=== PATIENT | male | born 1960 | race Caucasian/White ===

== ENCOUNTER 2017-09-02 08:56 | Observation (INO) | payer MEDICAID, OTHER ==
[~2017-09-02] VITALS: Ht 180.3 cm; Wt 88.0 kg
[2017-09-02] VITALS (11 sets, daily range): BP systolic 98–138; BP diastolic 58–89; PULSE 70–99; RESP 16–20; TEMP 97.5–98.9; O2SAT 94–97
--- NOTE | 2017-09-02 09:21 | PD ---
HPI Chief Complaint: Chest Pain Time Seen by Provider: 09:12 Travel History International Travel<30 days: No Contact w/Intl Traveler<30days: No Traveled to known affect area: No History of Present Illness HPI Patient is a 56-year-old male who presents the emergency room with complaints of chest pain. Patient reports that he has history of coronary artery disease, carotid artery stenosis, history of pacemaker, history of a quadruple bypass, presents the emergency room with complaints of chest pain which started last night. Patient reports that he had been having palpitations last night, reports that he woke up this morning with left-sided chest pain. Reports that nothing makes pain better or worse. Denies diaphoresis with his symptoms. Denies shortness of breath with his chest pain. Patient reports that pain because of the sharp stabbing nature that radiates into his left breast. Reports his symptoms are similar to when he had a cardiac stent in the past. Patient was given 2 sublingual nitroglycerin as well as a full dose aspirin, chest pain has improved since then. Patient reports that he currently is taking a baby aspirin, he is supposed to be taking Plavix as he had a carotid enterectomy in May 2017 in [place]. He does follow-up with bag grader in [place], Dr. Grady at [facility]. Patient denies any drugs or alcohol. PFSH Past Medical History Narrative Medical CAD, carotid stenosis, cardiac stents, hypertension, quadruple bypass Chest Pain: Yes Past Surgical History Narrative Surgical Significant for carotid endarterectomy as well as quadruple bypass, cardiac stents Social History Alcohol Use: No Tobacco Use: No Substance Use: No Allergies-Medications (Allergen,Severity, Reaction): Coded Allergies: No Known Allergies (Unverified , 09/02/17) Review of Systems General / Constitutional: No: Fever Eyes: No: Visual changes HENT: No: Headaches Cardiovascular: Positive: Chest Pain or Discomfort, No: Palpitations, Irregular Rhythm, Tachycardia, Diaphoresis Respiratory: No: Shortness of Breath Gastrointestinal: No: Abdominal Pain Genitourinary: No: Dysuria Musculoskeletal: No: Pain Skin: No Rash Neurologic: No: Weakness Psychiatric: No: Depression Endocrine: No: Polydipsia Hematologic/Lymphatic: No: Easy Bruising Physical Exam Narrative GENERAL: Moderate distress SKIN: Focused skin assessment warm/dry. HEAD: Atraumatic. Normocephalic. EYES: Pupils equal and round. No scleral icterus. No injection or drainage. ENT: No nasal bleeding or discharge. Mucous membranes pink and moist. NECK: Trachea midline. No JVD. CARDIOVASCULAR: Regular rate and rhythm. No murmur appreciated. RESPIRATORY: No accessory muscle use. Clear to auscultation. Breath sounds equal bilaterally. GASTROINTESTINAL: Abdomen soft, non-tender, nondistended. Hepatic and splenic margins not palpable. MUSCULOSKELETAL: No obvious deformities. No clubbing. No cyanosis. No edema. NEUROLOGICAL: Awake and alert. No obvious cranial nerve deficits. Motor grossly within normal limits. Normal speech. PSYCHIATRIC: Appropriate mood and affect; insight and judgment normal. Data Data Last Documented VS Vital Signs Date Time Temp Pulse Resp B/P (MAP) Pulse Ox O2 Delivery O2 Flow Rate FiO2 09/02/17 09:13 75 96 Nasal Cannula 2.00 09/02/17 09:13 19 138/89 (105) Orders Orders Electrocardiogram (09/02/17 09:12) Ckmb (Isoenzyme) Profile (09/02/17 09:12) Complete Blood Count With Diff (09/02/17 09:12) Comprehensive Metabolic Panel (09/02/17 09:12) Magnesium (Mg) (09/02/17 09:12) Prothrombin Time / Inr (Pt) (09/02/17 09:12) Act Partial Throm Time (Ptt) (09/02/17 09:12) Troponin I (09/02/17 09:12) Chest, Single Ap (09/02/17 09:12) Ecg Monitoring (09/02/17 09:12) Bilateral Bp Monitoring (09/02/17 09:12) Iv Access Insert/Monitor (09/02/17 09:12) Oximetry (09/02/17 09:12) Drug Screen, Random Urine (09/02/17 09:12) Electrocardiogram (09/02/17 ) Nitroglycerin 2% Oint (Nitroglycerin 2% (09/02/17 11:15) Admit Order (Ed Use Only) (09/02/17 11:01) Labs Laboratory Tests Test 09/02/17 09:15 White Blood Count 8.6 TH/MM3 Red Blood Count 5.44 MIL/MM3 Hemoglobin 16.7 GM/DL Hematocrit 47.8 % Mean Corpuscular Volume 87.9 FL Mean Corpuscular Hemoglobin 30.7 PG Mean Corpuscular Hemoglobin Concent 34.9 % Red Cell Distribution Width 13.7 % Platelet Count 129 TH/MM3 Mean Platelet Volume 8.2 FL Neutrophils (%) (Auto) 73.2 % Lymphocytes (%) (Auto) 12.6 % Monocytes (%) (Auto) 11.5 % Eosinophils (%) (Auto) 2.3 % Basophils (%) (Auto) 0.4 % Neutrophils # (Auto) 6.3 TH/MM3 Lymphocytes # (Auto) 1.1 TH/MM3 Monocytes # (Auto) 1.0 TH/MM3 Eosinophils # (Auto) 0.2 TH/MM3 Basophils # (Auto) 0.0 TH/MM3 CBC Comment DIFF FINAL Differential Comment Prothrombin Time 10.8 SEC Prothromb Time International Ratio 1.1 RATIO Activated Partial Thromboplast Time 27.2 SEC Blood Urea Nitrogen 12 MG/DL Creatinine 0.92 MG/DL Random Glucose 102 MG/DL Total Protein 7.5 GM/DL Albumin 3.6 GM/DL Calcium Level 9.6 MG/DL Magnesium Level 2.0 MG/DL Alkaline Phosphatase 82 U/L Aspartate Amino Transf (AST/SGOT) 43 U/L Alanine Aminotransferase (ALT/SGPT) 30 U/L Total Bilirubin 0.8 MG/DL Sodium Level 140 MEQ/L Potassium Level 4.3 MEQ/L Chloride Level 106 MEQ/L Carbon Dioxide Level 23.2 MEQ/L Anion Gap 11 MEQ/L Estimat Glomerular Filtration Rate 86 ML/MIN Total Creatine Kinase 100 U/L Troponin I LESS THAN 0.02 NG/ML MDM Medical Decision Making Medical Screen Exam Complete: Yes Emergency Medical Condition: Yes Medical Record Reviewed: Yes Interpretation(s) Vital Signs Date Time Temp Pulse Resp B/P (MAP) Pulse Ox O2 Delivery O2 Flow Rate FiO2 09/02/17 09:00 76 19 138/89 (105) 95 EKG at 0908: Atrial paced at 70 bpm, QT/QTc 382/403 Differential Diagnosis ACS, arrhythmia, PE, pneumothorax, electrolyte abnormality Narrative Course 56-year-old male with history of coronary artery disease, presents to the emergency room with complaints of left-sided chest pain. During the course of the patients emergency department visit, the patients history, examination, and differential diagnosis were reviewed with the patient. The patient was placed on a satellite project site monitor with oximetry and frequent blood pressure monitoring. The patient had an IV access obtained and blood work sent for analysis. The patient was initially provided 2 sublingual nitroglycerin as well as aspirin by EMS The patients laboratory studies were reviewed and remarkable for Laboratory Tests Test 09/02/17 09:15 White Blood Count 8.6 TH/MM3 (4.0-11.0) Red Blood Count 5.44 MIL/MM3 (4.50-5.90) Hemoglobin 16.7 GM/DL (13.0-17.0) Hematocrit 47.8 % (39.0-51.0) Mean Corpuscular Volume 87.9 FL (80.0-100.0) Mean Corpuscular Hemoglobin 30.7 PG (27.0-34.0) Mean Corpuscular Hemoglobin Concent 34.9 % (32.0-36.0) Red Cell Distribution Width 13.7 % (11.6-17.2) Platelet Count 129 TH/MM3 (150-450) Mean Platelet Volume 8.2 FL (7.0-11.0) Neutrophils (%) (Auto) 73.2 % (16.0-70.0) Lymphocytes (%) (Auto) 12.6 % (9.0-44.0) Monocytes (%) (Auto) 11.5 % (0.0-8.0) Eosinophils (%) (Auto) 2.3 % (0.0-4.0) Basophils (%) (Auto) 0.4 % (0.0-2.0) Neutrophils # (Auto) 6.3 TH/MM3 (1.8-7.7) Lymphocytes # (Auto) 1.1 TH/MM3 (1.0-4.8) Monocytes # (Auto) 1.0 TH/MM3 (0-0.9) Eosinophils # (Auto) 0.2 TH/MM3 (0-0.4) Basophils # (Auto) 0.0 TH/MM3 (0-0.2) CBC Comment DIFF FINAL Differential Comment Prothrombin Time 10.8 SEC (9.8-11.6) Prothromb Time International Ratio 1.1 RATIO Activated Partial Thromboplast Time 27.2 SEC (24.3-30.1) Blood Urea Nitrogen 12 MG/DL (7-18) Creatinine 0.92 MG/DL (0.60-1.30) Random Glucose 102 MG/DL (74-106) Total Protein 7.5 GM/DL (6.4-8.2) Albumin 3.6 GM/DL (3.4-5.0) Calcium Level 9.6 MG/DL (8.5-10.1) Magnesium Level 2.0 MG/DL (1.5-2.5) Alkaline Phosphatase 82 U/L (45-117) Aspartate Amino Transf (AST/SGOT) 43 U/L (15-37) Alanine Aminotransferase (ALT/SGPT) 30 U/L (12-78) Total Bilirubin 0.8 MG/DL (0.2-1.0) Sodium Level 140 MEQ/L (136-145) Potassium Level 4.3 MEQ/L (3.5-5.1) Chloride Level 106 MEQ/L (98-107) Carbon Dioxide Level 23.2 MEQ/L (21.0-32.0) Anion Gap 11 MEQ/L (5-15) Estimat Glomerular Filtration Rate 86 ML/MIN (>89) Total Creatine Kinase 100 U/L (39-308) Troponin I LESS THAN 0.02 NG/ML Radiology studies were reviewed and remarkable for Last Impressions Chest X-Ray 09/02/17 0912 Signed Impressions: Service Date/Time: Saturday, September 02, 2017 09:20 - CONCLUSION: 1. Post surgical features with minimal left midlung atelectasis/scarring. Ruben Andres MD All labs and all studies reviewed, plan to obs in chest pain center Diagnosis Primary Impression: Chest pain Qualified Codes: R07.9 - Chest pain, unspecified Admitting Information Admitting Physician Requests: Observation Kaity Wang DO September 02, 2017 09:21
--- NOTE | 2017-09-02 09:36 | RADRPT ---
EXAM DATE/TIME: 09/02/2017 09:20 [place] COMPARISON: No previous studies available for comparison. INDICATIONS : Chest pain. MEDICAL HISTORY : Cardiovascular disease. SURGICAL HISTORY : CABG. ENCOUNTER: Initial ACUITY: 1 day PAIN SCORE: 5/10 LOCATION: Bilateral chest FINDINGS: Post surgical changes of prior median sternotomy. Minimal linear parenchymal opacity in the left midl christina zone. Cardiomediastinal contours are within normal limits. Bony thorax is intact. CONCLUSION: 1. Post surgical features with minimal left midlung atelectasis/scarring. Ruben Andres MD on September 02, 2017 at 9:33 Board Certified Radiologist. This report was verified electronically.
[2017-09-02 09:40] LABS: AUTOMATED NEUTROPHIL # 6.3 TH/MM3 (1.8-7.7); BASOPHIL % 0.4 % (0.0-2.0); EOSINOPHIL # 0.2 TH/MM3 (0-0.4); EOSINOPHIL % 2.3 % (0.0-4.0); HEMATOCRIT 47.8 % (39.0-51.0); HEMOGLOBIN 16.7 GM/DL (13.0-17.0); LYMPH % 12.6 % (9.0-44.0); LYMPHOCYTE # 1.1 TH/MM3 (1.0-4.8); MEAN CELL VOLUME 87.9 FL (80.0-100.0); MEAN CORPUSCULAR HEMOGLOBIN 30.7 PG (27.0-34.0); MEAN CORPUSCULAR HGB CONC 34.9 % (32.0-36.0); MEAN PLATELET VOLUME 8.2 FL (7.0-11.0); MONO % 11.5 % (0.0-8.0); NEUT % 73.2 % (16.0-70.0); PLATELET COUNT 129 TH/MM3 (150-450); RED BLOOD COUNT 5.44 MIL/MM3 (4.50-5.90); RED CELL DISTRIBUTION WIDTH 13.7 % (11.6-17.2); WHITE BLOOD COUNT 8.6 TH/MM3 (4.0-11.0)
[2017-09-02 09:48] LABS: INTERNATIONAL NORMALIZED RATIO 1.1 RATIO; PROTHROMBIN TIME - PATIENT 10.8 SEC (9.8-11.6)
[2017-09-02 09:59] LABS: ALT (GPT) 30 U/L (12-78)
[2017-09-02 10:16] LABS: ALBUMIN 3.6 GM/DL (3.4-5.0); ALKALINE PHOSPHATASE 82 U/L (45-117); AST (GOT) 43 U/L (15-37); BICARBONATE 23.2 MEQ/L (21.0-32.0); BLOOD UREA NITROGEN 12 MG/DL (7-18); CALCIUM 9.6 MG/DL (8.5-10.1); CHLORIDE 106 MEQ/L (98-107); CREATININE 0.92 MG/DL (0.60-1.30); GLOMERULAR FILTRATION RATE 86 ML/MIN (>89); GLUCOSE,RANDOM 102 MG/DL (74-106); SODIUM (NA) 140 MEQ/L (136-145); TOTAL BILIRUBIN ADULT 0.8 MG/DL (0.2-1.0); TROPONIN I LESS THAN 0.02 NG/ML (0.02-0.05)
[2017-09-02 10:17] LABS: TOTAL PROTEIN 7.5 GM/DL (6.4-8.2)
[2017-09-02] MEDS ORDERED: NITROGLYCERIN 2% OINT 1 GM PACKET TOP ONE (11:15)
[2017-09-02] MEDS ORDERED: SODIUM CHLORIDE 0.9% FLUSH 10 ML FLUSH IV FLUSH PRN (11:15)
[2017-09-02] MEDS ORDERED: NITROGLYCERIN 0.4 MG SL 25 TABS/BTL SL PRN (11:15)
[2017-09-02] MEDS ORDERED: ACETAMINOPHEN 500 MG CPLT PO PRN (11:15)
[2017-09-02] MEDS ORDERED: ONDANSETRON HCL 4 MG/2 ML VIAL IV PUSH PRN (11:15)
[2017-09-02 13:11] LABS: TROPONIN I LESS THAN 0.02 NG/ML (0.02-0.05)
--- NOTE | 2017-09-02 13:16 | HHI.HP ---
HPI Primary Care Physician None Chief Complaint Chest pain History of Present Illness 56-year-old male with history of coronary artery disease, CABG 4, carotid stenosis, and pacemaker presents emergency room for further evaluation of chest pain. Onset between 7-730 am. Location left anterior chest. Characterized as sharpness. Severity 6/10, currently 4/10. Radiation to left shoulder blade and left axillary area. Duration has been constant. Associated symptoms intermittent dyspnea nausea. Denies vomiting or diaphoresis. Does not hurt to take a deep breath and no particular movement makes pain better or worse. No known precipitating or relieving factors. Endorses never following up with a primary provider or business planner after bypass surgery. Reports "I am grossly negligent with my medications." Review of Systems General: No fatigue,weakness, fever, chills, recent illness, or change in appetite. Has been in his general state of health. HEENT: No RIOS, no vision changes, no nasal congestion or drainage, no dysphasia CV: Continues to have chest pain as stated above. No palpitations, intermittent leg pain, or dizziness. History of x1 cardiac stent (2011) and CABG x4 (2016). RESP: No SOB, cough, or wheeze. Former smoker. GI: No nausea or vomiting, bowel changes, diarrhea, constipation, pain, distention, melena, blood in the stool. No change in appetite, no unintentional weight gain or weight loss : No dysuria, urgency, frequency EXT: Occasional bilateral dependent lower leg edema easily resolved with elevation of legs. No paralgesias MS: No discomfort, injury, or change in ROM NEURO: No difficulty with balance, LOC, or motor/sensory deficits PSYCH: No depression or suicidal ideation. History of "psychic events after receiving anesthesia" and anxiety. Current situational stress. SKIN: No rashes, no concerning lesions Past Family Social History Allergies: Coded Allergies: No Known Allergies (Unverified , 09/02/17) Past Medical History Coronary artery disease, carotid stenosis, hypertension Past Surgical History CABGx4 (August 2016-[place], [place]), Right CEA (May 2017-[place], [place]) Reported Medications None Remembers being prescribed the following (has not taken is "sometime") Metoprolol, furosemide, K-clon, Plavix, Xanax, aspirin, and a statin. Active Ordered Medications Current Medications Medications (Trade) Dose Ordered Sig/Mile Route Start Time Stop Time Status Last Admin (NS Flush) 2 ml UNSCH PRN IV FLUSH 09/02/17 11:15 (NS Flush) 2 ml BID IV FLUSH 09/02/17 21:00 (Tylenol) 500 mg Q4H PRN PO 09/02/17 11:15 (Zofran Inj) 4 mg Q6H PRN IV PUSH 09/02/17 11:15 (Nitrostat Sl) 0.4 mg Q5M PRN SL 09/02/17 11:15 (Aspirin) 325 mg DAILY PO 09/03/17 09:00 Family History Both parents experienced myocardial infarctions in their 50s. Mother required CABG age 61. One brother with no known health issues. Social History Known coronary artery disease and hypertension. No known hyperlipidemia or diabetes. Currently not taking a statin with history of CAD. Former smoker. Quit August 2016. 38 pack year/history. Remote cocaine abuse. Denies any current illegal drug use. Denies any alcohol use. Homeless. Endorses sedentary lifestyle since CEA surgery May 2017. Past cardiac testing Does not have a business planner. Never followed with a business planner after CABG. No cardiac testing completed since CABG. Reports Right carotid artery 60% stenosis prior to CABG. Apparently sometime later having difficulty with balance therefore further ultrasounds completed suggesting right carotid arteries 90% stenotic. Right carotid endarterectomy completed May 2017. No known stenosis percentage of left coronary artery. Physical Exam Vital Signs Vital Signs Date Time Temp Pulse Resp B/P (MAP) Pulse Ox O2 Delivery O2 Flow Rate FiO2 09/02/17 13:00 76 09/02/17 12:10 97.5 70 20 118/70 (86) 96 09/02/17 11:50 09/02/17 11:31 80 19 121/83 (96) 97 Nasal Cannula 2.00 09/02/17 09:13 75 96 Nasal Cannula 2.00 09/02/17 09:13 87 19 138/89 (105) 97 Nasal Cannula 2.00 09/02/17 09:00 76 19 138/89 (105) 95 Physical Exam GENERAL: Alert WN, WD, NAD, pleasant, male who appears older than stated age. HEAD: NC, AT CV: RRR, without murmur, rub, gallop, no JVD, S1-S2 no S3-S4. Faint left carotid bruit, no right carotid bruit. No femoral bruits. Chest wall nontender with palpation. RESP: Clear lungs throughout bilateral, no crackles, wheeze, rhonchi, symmetrical chest rise, nonlabored, able to speak in full sentences ABD: Soft, NT, ND, no masses, positive bowel tones EXT: Pulses +2x4, no dependent edema MS: Normal tone x4 extremities, nontender, no obvious deformities, full range of motion NEURO: CN II through CN XII grossly intact, motor strength 5/5 PSYCH: A+O x3, flat affect, appropriate speech, mood, insight and judgment. Provides detailed history of medical history. SKIN: Normal turgor, normal texture, solar damage, midline chest surgical scar, right carotid surgical scar, and left anterior chest scar all well healed Laboratory Laboratory Tests Test 09/02/17 09:15 09/02/17 12:15 White Blood Count 8.6 Red Blood Count 5.44 Hemoglobin 16.7 Hematocrit 47.8 Mean Corpuscular Volume 87.9 Mean Corpuscular Hemoglobin 30.7 Mean Corpuscular Hemoglobin Concent 34.9 Red Cell Distribution Width 13.7 Platelet Count 129 Mean Platelet Volume 8.2 Neutrophils (%) (Auto) 73.2 Lymphocytes (%) (Auto) 12.6 Monocytes (%) (Auto) 11.5 Eosinophils (%) (Auto) 2.3 Basophils (%) (Auto) 0.4 Neutrophils # (Auto) 6.3 Lymphocytes # (Auto) 1.1 Monocytes # (Auto) 1.0 Eosinophils # (Auto) 0.2 Basophils # (Auto) 0.0 CBC Comment DIFF FINAL Differential Comment Prothrombin Time 10.8 Prothromb Time International Ratio 1.1 Activated Partial Thromboplast Time 27.2 Blood Urea Nitrogen 12 Creatinine 0.92 Random Glucose 102 Total Protein 7.5 Albumin 3.6 Calcium Level 9.6 Magnesium Level 2.0 Alkaline Phosphatase 82 Aspartate Amino Transf (AST/SGOT) 43 Alanine Aminotransferase (ALT/SGPT) 30 Total Bilirubin 0.8 Sodium Level 140 Potassium Level 4.3 Chloride Level 106 Carbon Dioxide Level 23.2 Anion Gap 11 Estimat Glomerular Filtration Rate 86 Total Creatine Kinase 100 77 Troponin I LESS THAN 0.02 LESS THAN 0.02 Result Diagram: 09/02/1715 09/02/1715 Imaging Last 48 hours Impressions Chest X-Ray 09/02/1712 Signed Impressions: Service Date/Time: Saturday, September 02, 2017 09:20 - CONCLUSION: 1. Post surgical features with minimal left midlung atelectasis/scarring. Ruben Andres MD Course EKG 1st EKG-normal sinus rhythm, nonspecific ST T-segment changes with PACs 2nd EKG-atrial paced with minimal ST depression laterally Caprini VTE Risk Assessment Caprini VTE Risk Assessment: No/Low Risk (score <= 1) Caprini Risk Assessment Model Point Value = 1 Point Value = 2 Point Value = 3 Point Value = 5 Age 41-60 Minor surgery BMI > 25 kg/m2 Swollen legs Varicose veins or History of unexplained or recurrent spontaneous Oral contraceptives or hormone replacement Sepsis (< 1 month) Serious lung disease, including pneumonia (< 1 month) Abnormal pulmonary function Acute myocardial infarction Congestive heart failure (< 1 month) History of inflammatory bowel disease Medical patient at bed rest Age 61-74 Arthroscopic surgery Major open surgery (> 45 min) Laparoscopic surgery (> 45 min) Malignancy Confined to bed (> 72 hours) Immobilizing plaster cast Central venous access Age >= 75 History of VTE Family history of VTE Factor V Leiden Prothrombin [id number] Lupus anticoagulant Anticardiolipin antibodies Elevated serum homocysteine Heparin-induced thrombocytopenia Other congenital or acquired thrombophilia Stroke (< 1 month) Elective arthroplasty Hip, pelvis, or leg fracture Acute spinal cord injury (< 1 month) Prophylaxis Regimen Total Risk Factor Score Risk Level Prophylaxis Regimen 0-1 Low Early ambulation 2 Moderate Order ONE of the following: *Sequential Compression Device (SCD) *Heparin 5000 units SQ BID 3-4 Higher Order ONE of the following medications: *Heparin 5000 units SQ TID *Enoxaparin/Lovenox 40 mg SQ daily (WT < 150 kg, CrCl > 30 mL/min) *Enoxaparin/Lovenox 30 mg SQ daily (WT < 150 kg, CrCl > 10-29 mL/min) *Enoxaparin/Lovenox 30 mg SQ BID (WT < 150 kg, CrCl > 30 mL/min) AND/OR *Sequential Compression Device (SCD) 5 or more Highest Order ONE of the following medications: *Heparin 5000 units SQ TID (Preferred with Epidurals) *Enoxaparin/Lovenox 40 mg SQ daily (WT < 150 kg, CrCl > 30 mL/min) *Enoxaparin/Lovenox 30 mg SQ daily (WT < 150 kg, CrCl > 10-29 mL/min) *Enoxaparin/Lovenox 30 mg SQ BID (WT < 150 kg, CrCl > 30 mL/min) AND *Sequential Compression Device (SCD) Assessment and Plan Assessment and Plan #1 Chest pain-admitted chest pain center. Rule out ACS with 3 sets of EKGs and cardiac enzymes. Place on telemetry. Seen and evaluated by Dr. Stiven England in morning. #2 History of coronary artery disease-discussed importance of compliance with medication and following with business planner with his known coronary artery disease. Verbalizes understanding. Stefanie Dias September 02, 2017 13:16
--- NOTE | 2017-09-02 15:01 | PD.CARD.PN ---
Subjective Subjective Remarks Patient's medical records were reviewed, laboratory data was reviewed and the patient was discussed with nurse practitioner. I personally saw the patient obtained more detailed history and physical examination. I am in agreement with the record as documented and have developed and agreed upon assessment and plan. Objective Medications Current Medications Medications (Trade) Dose Ordered Sig/Mile Route Start Time Stop Time Status Last Admin (NS Flush) 2 ml UNSCH PRN IV FLUSH 09/02/17 11:15 (NS Flush) 2 ml BID IV FLUSH 09/02/17 21:00 (Tylenol) 500 mg Q4H PRN PO 09/02/17 11:15 (Zofran Inj) 4 mg Q6H PRN IV PUSH 09/02/17 11:15 (Nitrostat Sl) 0.4 mg Q5M PRN SL 09/02/17 11:15 (Aspirin) 325 mg DAILY PO 09/03/17 09:00 Vital Signs / I&O Vital Signs Date Time Temp Pulse Resp B/P (MAP) Pulse Ox O2 Delivery O2 Flow Rate FiO2 09/02/17 13:00 76 09/02/17 12:10 97.5 70 20 118/70 (86) 96 09/02/17 11:50 09/02/17 11:31 80 19 121/83 (96) 97 Nasal Cannula 2.00 09/02/17 11:22 96 Nasal Cannula 2.00 09/02/17 09:13 75 96 Nasal Cannula 2.00 09/02/17 09:13 87 19 138/89 (105) 97 Nasal Cannula 2.00 09/02/17 09:00 76 19 138/89 (105) 95 Physical Exam Physical exam is as documented with the sole exception of a left carotid bruit which is very soft and difficult to obtain. Laboratory Laboratory Tests Test 09/02/17 09:15 09/02/17 12:15 White Blood Count 8.6 TH/MM3 Red Blood Count 5.44 MIL/MM3 Hemoglobin 16.7 GM/DL Hematocrit 47.8 % Mean Corpuscular Volume 87.9 FL Mean Corpuscular Hemoglobin 30.7 PG Mean Corpuscular Hemoglobin Concent 34.9 % Red Cell Distribution Width 13.7 % Platelet Count 129 TH/MM3 Mean Platelet Volume 8.2 FL Neutrophils (%) (Auto) 73.2 % Lymphocytes (%) (Auto) 12.6 % Monocytes (%) (Auto) 11.5 % Eosinophils (%) (Auto) 2.3 % Basophils (%) (Auto) 0.4 % Neutrophils # (Auto) 6.3 TH/MM3 Lymphocytes # (Auto) 1.1 TH/MM3 Monocytes # (Auto) 1.0 TH/MM3 Eosinophils # (Auto) 0.2 TH/MM3 Basophils # (Auto) 0.0 TH/MM3 CBC Comment DIFF FINAL Differential Comment Prothrombin Time 10.8 SEC Prothromb Time International Ratio 1.1 RATIO Activated Partial Thromboplast Time 27.2 SEC Blood Urea Nitrogen 12 MG/DL Creatinine 0.92 MG/DL Random Glucose 102 MG/DL Total Protein 7.5 GM/DL Albumin 3.6 GM/DL Calcium Level 9.6 MG/DL Magnesium Level 2.0 MG/DL Alkaline Phosphatase 82 U/L Aspartate Amino Transf (AST/SGOT) 43 U/L Alanine Aminotransferase (ALT/SGPT) 30 U/L Total Bilirubin 0.8 MG/DL Sodium Level 140 MEQ/L Potassium Level 4.3 MEQ/L Chloride Level 106 MEQ/L Carbon Dioxide Level 23.2 MEQ/L Anion Gap 11 MEQ/L Estimat Glomerular Filtration Rate 86 ML/MIN Total Creatine Kinase 100 U/L 77 U/L Troponin I LESS THAN 0.02 NG/ML LESS THAN 0.02 NG/ML Imaging Last 24 hours Impressions Chest X-Ray 09/02/17 0912 Signed Impressions: Service Date/Time: Saturday, September 02, 2017 09:20 - CONCLUSION: 1. Post surgical features with minimal left midlung atelectasis/scarring. Ruben Andres MD Assessment and Plan Assessment and Plan The patient will be ruled out using standard chest pain center protocol and an exercise stress test will be obtained in the morning. Code Status Full code Discussed Condition With Discussed with nurse practitioner and patient Stiven Miller MD September 02, 2017 15:01
--- NOTE | 2017-09-02 15:42 | EKG ---
Date Performed: 09/02/2017 Time Performed: 11:04:54 PTAGE: 56 years EKG: ELECTRONIC ATRIAL PACEMAKER NONSPECIFIC T-WAVE ABNORMALITY ABNORMAL RHYTHM ECG PREVIOUS TRACING : 09/02/2017 09.10 DOCTOR: Stiven Miller Interpretating Date/Time 09/02/2017 15:40:46
--- NOTE | 2017-09-02 15:43 | EKG ---
Date Performed: 09/02/2017 Time Performed: 09:10:58 PTAGE: 56 years EKG: Sinus rhythm NONSPECIFIC ST & T-WAVE ABNORMALITY BORDERLINE ECG NO PREVIOUS TRACING DOCTOR: Stiven Miller Interpretating Date/Time 09/02/2017 15:41:03
--- NOTE | 2017-09-02 15:48 | EKG ---
Date Performed: 09/02/2017 Time Performed: 12:18:45 PTAGE: 56 years EKG: ELECTRONIC ATRIAL PACEMAKER NONSPECIFIC T-WAVE ABNORMALITY ABNORMAL RHYTHM ECG No change PREVIOUS TRACING : 09/02/2017 11.04 DOCTOR: Stiven Miller Interpretating Date/Time 09/02/2017 15:46:54
[2017-09-02 16:10] LABS: TROPONIN I LESS THAN 0.02 NG/ML (0.02-0.05)
[2017-09-02] MEDS: SODIUM CHLORIDE 0.9% FLUSH 10 ML FLUSH IV FLUSH SCH (20:26)
[2017-09-03] VITALS: PULSE 81
[2017-09-03 03:50] VITALS: PULSE 70
[2017-09-03 03:52] VITALS: BP 104/64; PULSE 71; RESP 16; TEMP 98.6; O2SAT 96
[2017-09-03 07:16] VITALS: BP 96/52; PULSE 76; RESP 16; TEMP 98.6; O2SAT 97
[2017-09-03 08:00] VITALS: PULSE 68
[2017-09-03] MEDS ORDERED: REGADENOSON INJ 0.4 MG/5 ML SYR ONE (08:58)
[2017-09-03] MEDS: SODIUM CHLORIDE 0.9% FLUSH 10 ML FLUSH IV FLUSH SCH (09:00)
[2017-09-03] MEDS ORDERED: ASPIRIN 325 MG TAB PO SCH (09:00)
--- NOTE | 2017-09-03 09:40 | EKG ---
Date Performed: 09/02/2017 Time Performed: 15:06:45 PTAGE: 56 years EKG: Sinus rhythm POSSIBLE LEFT ATRIAL ENLARGEMENT LEFT VENTRICULAR HYPERTROPHY AND ST-T CHANGE ABNORMAL ECG No sig ch eloy PREVIOUS TRACING : 09/02/2017 12.18 DOCTOR: Stiven Miller Interpretating Date/Time 09/03/2017 09:39:34
--- NOTE | 2017-09-03 10:48 | RADRPT ---
EXAM DATE/TIME: 09/03/2017 08:59 [place] COMPARISON: CHEST SINGLE AP, September 02, 2017, 9:20. INDICATIONS : Left anterior chest pain. Angina. DOSE: 25.7 mCi Tc99m Myoview at stress. 8.5 mCi Tc99m Myoview at rest. 0.4 mg Lexiscan STRESS SYMPTOMS: Shortness of breath, chest pressure, abdominal pressure, headache. EJECTION FRACTION: 37% MEDICAL HISTORY : Hypercholesterolemia. SURGICAL HISTORY : CABG Carotid endarterectomy. Pacemaker. ENCOUNTER: Initial ACUITY: 2 days PAIN SCALE: 6/10 LOCATION: Left anterior chest. TECHNIQUE: The patient underwent pharmacologic stress with infusion of prescribed dose. Continuous ECG tracing was monitored during stress. Gated SPECT imaging was performed after stress and conventional SPECT i maging was performed at rest. The examination was performed on a SPECT/CT scanner, both attenuation and non-corrected datasets were reviewed. FINDINGS: DISTRIBUTION: The maximum perfused segment at stress is in the anteroseptal wall. PERFUSION STUDY: The pattern of perfusion at stress is within normal limits. No fixed or reversible perfusion defect i s identified. GATED STUDY: There is septal akinesia and remaining segments are hypokinetic. CONCLUSION: 1. No fixed or reversible protrusion defect is identified. 2. Abnormal wall motion with septal akinesia and hypokinesia of the remaining areas with decreased le ft ventricle ejection fraction calculated at 37%. RISK CATEGORY: Intermediate (1-3% Annual Mortality Rate) Alvaro Grissom MD on September 03, 2017 at 10:43 Board Certified Radiologist. This report was verified electronically.
--- NOTE | 2017-09-03 11:59 | HHI.DCPOC ---
Discharge Care Plan Diagnosis: (1) Chest pain (2) CAD (coronary artery disease) (3) Hx of CABG (4) Cardiomyopathy Goals to Promote Your Health FOLLOW UP WITH [facility]. YOU WILL NEED FURTHER EVALUATION AND TREATMENT OF CARDIOMYOPATHY. * To prevent worsening of your condition and complications * To maintain your health at the optimal level Directions to Meet Your Goals Take your medications as prescribed Follow your dietary instruction Follow activity as directed Keep your appointments as scheduled Take your immunizations and boosters as scheduled If your symptoms worsen call your PCP, if no PCP go to Urgent Care Center or Emergency Room Smoking is Dangerous to Your Health. Avoid second hand smoke Call the 24-hour hour crisis hotline for domestic abuse at [facility] September 03, 2017 11:58
--- NOTE | 2017-09-04 09:47 | TR ---
Date Performed: 09/03/2017 Time Performed: 09:21:29 DOCTOR: Stiven Miller DRUG LIST: CLINICAL HISTORY: ANGINA REASON FOR TEST: REASON FOR ENDING: OBSERVATION: CONCLUSION: Lexiscan stress test was performed under standard four minute protocol. Radionuclide was injected one minute prior to ending the test. No electrocardiographic abormalities were present to suggest ischemia. Nuclear imaging and interpretation are pending. COMMENTS:
== END 2017-09-03 15:56 | disposition home or self-care (01) ==
LOC: NEPE 08:56 → NEDA 11:02 → NEPGCP 12:15
DX: R07.9 Chest pain, unspecified (principal); I25.10 Atherosclerotic heart disease of native coronary artery without angina pectoris; I42.9 Cardiomyopathy, unspecified; I10 Essential (primary) hypertension; Z95.1 Presence of aortocoronary bypass graft; Z95.5 Presence of coronary angioplasty implant and graft; Z95.0 Presence of cardiac pacemaker; Z87.891 Personal history of nicotine dependence; Z59.0 Homelessness
CPT/HCPCS: 71045; 78452; 80053; 82550; 83735; 84484; 85025; 85610; 85730; 93005; 93017; 96374; 99285; A9502; G0378; J2405; J2785